=== PATIENT | female | born 1990 | race Caucasian/White ===

== ENCOUNTER → 2021-08-14 14:53 | Outpatient (CLI) | payer OTHER, SELFPAY ==
--- NOTE | 2021-08-14 | DI.US.S_ITS ---
PROCEDURE: US OB >= 14 WEEKS FETUS INDICATIONS: 20 WEEK ANATOMY SCAN OUTSIDE/PRIOR DATING DATA: Last menstrual period (LMP): 03/30/2021. LMP-based estimated date of delivery (ROBERT): 01/04/2022 . First dating scan (date and location): 08/14/2021 . Estimated date of delivery (ROBERT) from first dating scan: 12/30/2021 TECHNIQUE: Real-time scanning was performed of the fetus, with image documentation and biometric measurements. Endovaginal scanning: No COMPARISON: None. FINDINGS: General: A single living intrauterine gestation is present. Presentation: Breech. Placenta: Placental position is posterior , without previa. Amniotic fluid index: 8.5 cm, normal range is 5-24 cm. heart rate: 144 beats per minute. Maternal cervical canal: 3.6 cm long. Normal lower limit is 2.5 cm. biometrics: Biparietal diameter: 19 weeks 6 days Head circumference: 19 weeks 5 days Abdominal circumference: 21 weeks Femur length: 19 weeks 6 days Estimated gestational age from initial scan: not applicable. Composite gestational age from present scan: 20 weeks 1 day Estimated weight and percentile: 350 g; 88th percentile based on LMP Measurement variability for biometric dating: +/- 7 days from 14 weeks to 15 weeks 6 days gestation, +/- 10 days from 16 weeks to 21 weeks 6 days gestation, +/- 2 weeks from 22 weeks to 27 weeks 6 days gestation, +/- 3 weeks for 28 weeks gestation or later. weight reference: 4500 g or EFW >90/95% is considered macrosomia or large for gestational age. EFW <10% is small for gestational age. EFW 5% or less is considered intra-uterine growth restriction. Anatomic survey: Neuro: Ventricles are non-dilated at less than 10 mm. Cisterna magna is normal at 3-11 mm. Cerebellum is normal in size and morphology. Nuchal skin fold: Normal at less than 6 mm between 14-21 weeks gestational age. Face: Nose and lips, facial profile are normal. Spine: No evidence for spina bifida. Heart: 4-chambered heart is present, with normal ventricular outflow tracts. Diaphragm: Diaphragm is intact. Stomach: Left-sided stomach is present. Kidneys: No hydronephrosis. Normal is less than 5 mm in 2nd trimester, less than 7 mm in 3rd trimester. Cord: 3-vessel cord has orthotopic insertion. Marginal cord insertion site roughly 2.1 cm from the placental edge. Bladder: Normal in size. Extremities: All 4 extremities identified. IMPRESSION: 1. 20 week 1 day single living IUP. 2. Spine and kidneys suboptimally visualized; otherwise normal anatomic survey. Follow-up recommended. 3. Marginal cord insertion site. Recommend attention on follow-up. Dictated by: Hayder HERRMANN Interpreted: Cesario Buenrostro MD on 08/14/2021 at 16:36 Transcribed by: SYLVIA on 08/14/2021 at 16:39 Approved by: Cesario Buenrostro M.D. on 08/14/2021 at 17:17
== END ==
PROVIDERS: Referring Provider Nurse Practitioner Obstetrics & Gynecology; Visit Provider Nurse Practitioner Obstetrics & Gynecology
DX: Z34.92 Encounter for supervision of normal pregnancy, unspecified, second trimester (principal); Z3A.20 20 weeks gestation of pregnancy
CPT/HCPCS: 76811

== ENCOUNTER → 2021-09-10 13:37 | Outpatient (CLI) | payer OTHER, SELFPAY ==
--- NOTE | 2021-09-10 | DI.US.S_ITS ---
PROCEDURE: US OB FOLLOW UP INDICATIONS: FOLLOW UP SPINE, KIDNEYS, AND PLACENTAL CORD INSERTION OUTSIDE/PRIOR DATING DATA: Last menstrual period (LMP): 03/30/2021 LMP-based estimated date of delivery (ROBERT): 01/04/2022. First dating scan (date and location): 08/14/2021. Estimated date of delivery (ROBERT) from first dating scan: 12/31/2021. The calculations are made using the ultrasound ROBERT of 12/31/2021. TECHNIQUE: Real-time scanning was performed of the fetus, with image documentation and biometric measurements. Endovaginal scanning: No COMPARISON: [facility], US, US OB >= 14 WEEKS FETUS, 08/14/2021, 15:20. FINDINGS: General: A single living intrauterine gestation is present. Presentation: Vertex. Placenta: Placental position is posterior , without previa. Amniotic fluid index: 12.1 cm, normal range is 5-24 cm. heart rate: 150 beats per minute. Maternal cervical canal: Not well seen. Clinically estimated gestational age: 24 weeks Normal LS spine and kidneys. Marginal placental cord insertion site redemonstrated. IMPRESSION: Single living IUP redemonstrated and today's examination demonstrating normal appearance of the lumbosacral spine and kidneys. We strive to produce accurate, complete, and clear reports of imaging services. To assist us in improving patient care, this report was composed using standard report templates and voice recognition software. Therefore, it may contain abnormal punctuation, insertions and/or omissions. Occasional wrong-word or sound-alike substitutions may occur. Though we review the report and make efforts to correct it, we do recommend that the report be read carefully in proper context to recognize any text inaccuracies. Dictated by: Hayder HERRMANN Interpreted: Raffaele Marinelli MD on 09/10/2021 at 15:28 Transcribed by: CANDY on 09/10/2021 at 15:30 Approved by: Raffaele Marinelli M.D. on 09/10/2021 at 16:22
== END ==
PROVIDERS: Referring Provider Nurse Practitioner Obstetrics & Gynecology; Visit Provider Nurse Practitioner Obstetrics & Gynecology
DX: Z36.2 Encounter for other antenatal screening follow-up (principal); Z3A.24 24 weeks gestation of pregnancy
CPT/HCPCS: 76816

== ENCOUNTER → 2021-12-11 19:26 | Outpatient (ROUT) | payer BC, SELFPAY | PROVIDERS: Visit Provider Nurse Practitioner Obstetrics & Gynecology | DX: Z36.85 Encounter for antenatal screening for Streptococcus B (principal); Z3A.36 36 weeks gestation of pregnancy | CPT/HCPCS: 87081 ==

== ENCOUNTER 2022-01-05 18:28 | Inpatient (IN) | payer BC, SELFPAY ==
--- NOTE | 2022-01-05 18:35 | P.HPOB_ITS ---
OB HPI Date/Time Date of admission: 01/05/22 Date Patient Seen: 01/05/22 Time Patient Seen: 18:35 History of Present Condition Chief complaint: Eval of Labor : 1 Para: 0 Estimated Date of Delivery: 01/04/22 Estimated Gestational Age (weeks): 40.1 Narrative: Meenu Saucedo is a 31 year old female @ [id number] here for admission for term PROM. Seen in clinic w/ SROM at 1550, positive for pooling, ferning and nitrazine. Has been experiencing irregular contractions x 2 days, described as intense and regular every 5-6 minutes throughout the night, then more mild and tolerable during the day. Uncomplicated PN care w/ CNM. Desires an epidural and active management of PROM. History of Present care: good care, initiated at week # (10), number of visits (10) and pounds weight gain (30) Dating criteria: LMP confirmed by 1st trimester US Ultrasounds: normal mid trimester US Abnormal ultrasound findings: marginal cord insertion Obstetrical complications: none Medical complications: none Preadmission Labs Blood type: A (+) positive -: Antibody screen: negative, GBS status: negative, HBsAG: negative, HIV: negative and RPR/VDLR: negative -: Chlamydia screen: not detected and Gonorrhea screen: not detected -: Rubella: immune and Varicella: immune HCT: 36.5 HCAB: negative 1 hr GTT: 134 Evaluation Evaluation Baseline heart rate: 130 Variability: Moderate (11-25) monitor accelerations: Present Monitor Decelerations: Absent Contraction Frequency (minutes): 5 Uterine Contraction Intensity: Mild Status: Category l Comments: CE deferred for PROM [facility] Social History Smoking Status: Never smoker Meds Home Medications and Allergies Home Medications Medication Instructions Recorded Confirmed Type No Known Home Medications 01/05/22 01/05/22 History Allergies Allergy/AdvReac Type Severity Reaction Status Date / Time No Known Drug Allergies Allergy Verified 01/05/22 19:56 Review of Systems Review of Systems ROS: Yes All systems reviewed with the patient and are negative except as otherwise documented OB Exam Narrative Exam Narrative: VS: BP 127/75mmHg, HR 88bpm, T 36.8C Temporal Presentation: vertex Objective Labs Result Diagrams: 01/05/22 19:00 Assessment and Plan Assessment and Plan Assessment and Plan narrative: A: Term nullipara PROM x 3 hours without sx of infection Early labor Cat I FHR P: Admit, routine orders. epidural when requested and pitocin protocol once children's literature professor allows. Reassess after 2 hours of regular, moderate contractions.
[2022-01-05 19:22] LABS: COVID19 -Nasal RAPID Negative (Negative)
[2022-01-05] MEDS: LACTATED RINGERS 1,000 ML 100 ML IV ×2 (19:48→22:08)
[2022-01-05 19:50] LABS: Add Manual Diff / Slide Review NO; Basophils Absolute Auto 200 /uL (0-100); Basophils Percent Auto 1.3 % (0-2); Eosinophils Absolute Auto 100 /uL (0-450); Eosinophils Percent Auto 0.8 % (2-4); Hematocrit 37.6 % (36-46); Hemoglobin 12.6 g/dL (12.0-16.0); Lymphocytes Absolute Auto 2200 /uL (1100-4500); Lymphocytes Percent Auto 17.4 % (25-40); Mean Corpuscular HGB Conc 33.6 % (30-36); Mean Corpuscular Hemoglobin 29.4 PG (26-34); Mean Corpuscular Volume 87.5 fL (80-100); Monocytes Absolute Auto 700 /uL (0-900); Monocytes Percent Auto 5.6 % (3-14); Neutrophils Absolute Auto 9600 /uL (1500-7000); Neutrophils Percent Auto 74.9 % (50-75); Platelet Count 192 X10^3/uL (150-400); Red Cell Distribution Width 13.5 % (11.6-14.8); White Blood Cell Count 12.9 X10^3/uL (4.5-11.0)
[2022-01-05 19:54] VITALS: BP 137/81
--- NOTE | 2022-01-05 20:51 | PM.AN.REGBLK ---
Regional Block Pre-procedure Procedure: Continuous Lumbar Epidural for L&D Attending OB provider: Cari Correia PMH/ROS narrative: term labor, no complications ASA Class: II Labs: Hct 37.6 % (36-46) 01/05/22 19:00 Plt Count 192 X10^3/uL (150-400) 01/05/22 19:00 Medications: Current Medications Generic Name Dose Route Start Last Admin Trade Name Freq PRN Reason Stop Dose Admin Calcium Carbonate 1,000 mg 01/05/22 18:33 Calcium Carbonate 500 Mg Tab PO Q2HR PRN Dyspepsia Carboprost Tromethamine 250 mcg 01/05/22 18:33 Carboprost 250 Mcg/Ml Ampul IM Q90M PRN Bleeding Fentanyl 100 mcg 01/05/22 18:38 Fentanyl 250 Mcg/5 Ml Inj IV Q1H PRN Pain, Severe (7-10) Lactated Ringer's 1,000 mls @ 100 mls/hr 01/05/22 18:45 01/05/22 19:48 Lactated Ringers IV 100 mls/hr CONT JASMINA Administration Oxytocin/Lactated Ringer's 30 unit in 500 mls @ 200 mls/hr 01/05/22 18:33 Oxytocin Premix IV CONT PRN Bleeding Protocol Tranexamic Acid 1,000 mg/ 100 mls @ 200 mls/hr 01/05/22 18:33 Sodium Chloride IV NOW PRN Bleeding Oxytocin/Lactated Ringer's 30 unit in 500 mls @ 3 mls/hr 01/05/22 18:45 Oxytocin Premix IV TITRATE JASMINA Protocol 3 MILLIUNIT/MIN Methylergonovine Maleate 0.2 mg 01/05/22 18:33 Methylergonovine 0.2 Mg Tablet PO Q6HR PRN Heavy Bleeding Methylergonovine Maleate 0.2 mg 01/05/22 18:33 Methylergonovine 0.2 Mg/Ml Vial IM NOW PRN Bleeding Misoprostol 800 mcg 01/05/22 18:33 Misoprostol 200 Mcg Tablet VA NOW PRN Bleeding Misoprostol 1,000 mcg 01/05/22 18:33 Misoprostol 200 Mcg Tablet VA NOW PRN Bleeding Misoprostol 400 mcg 01/05/22 18:33 Misoprostol 200 Mcg Tablet SL NOW PRN Bleeding Naloxone HCl 0.2 mg 01/05/22 18:33 Naloxone 0.4 Mg/Ml Vial IV Q2MIN PRN Opiate Reversal Ondansetron HCl 4 mg 01/05/22 18:33 Ondansetron 4 Mg/2 Ml Inj IV Q4HR PRN Nausea And Vomiting Oxytocin 10 unit 01/05/22 18:33 Oxytocin 10 Unit/Ml Vial IM NOW PRN Bleeding Allergies: Allergies Allergy/AdvReac Type Severity Reaction Status Date / Time No Known Drug Allergies Allergy Verified 01/05/22 19:56 Procedure Insertion date: 01/05/22 Insertion time: 21:00 Prep/Local: betadine x3 and 1% lidocaine Interspace: L2-3 Patient position: sitting Needle: 18 gauge Hustead (CSE: 27g Pencan through Hustead, clear CSF, 1mL 0.25% bupiv MPF) Loss of resistance with: saline CECILY at (cm): 5 Catheter placed at SKIN (cm): 10 Catheter in SPACE (cm): 5 Initial Medications TEST DOSE time: 21:05 TEST DOSE: 1.5% lidocaine with epinephrine 1:200k (mL): 3 BOLUS DOSE time: 21:09 BOLUS DOSE (mL): 4 BOLUS DOSE med: other (infusate) Infusion INFUSION: 0.125% bupivacaine and with fentanyl 2 mcg/mL Initial rate (mL/hr): 6 Subsequent interventions: Post-procedure Anesthesia time START: 20:53 Anesthesia time END: 02:06 Post-procedure Anesthesia Assessment: Yes CV function: HR/BP stable, Yes Resp function: RR/sat/airway adequate, Yes Mental status appropriate and No Anesthesia complications
[2022-01-05] MEDS: FENT 2MCG/ML BUPIV 0.125% EPI 200 MCG/100 ML PLAST..BAG 6 MCG EPIDURAL (22:09)
[2022-01-05] MEDS: OXYTOCIN PREMIX 30 UNIT/500 ML PLAST..BAG IV (22:09)
--- NOTE | 2022-01-06 02:40 | P.PCNOB_ITS ---
Events: Labor Augmentation Labor & Delivery Delivery date: 01/06/22 Intrapartal Events: None Cervical ripening method: none Induction method: none Delivery augmentation: pitocin Delivery monitor: external FHT and external uterine Route of delivery: Episiotomy description: None L&D Laceration Description: Vaginal - 1st Degree Delivery repair: chromic (3.0) Estimated blood loss (mL): 200 Anesthesia Type: Epidural Narrative: Epidural was started at 2100 and pitocin started at 2200. Epidural was effective and max pitocin dose was 8mu/min. CNM called to bedside for patient report of rectal pressure at 0104 and was C/C/+1. Patient pushed effectively with coaching and encouragement w/ NSVB of a vigorous baby girl in GREGORIO position. There was no nuchal cord and a compound R hand was manually reduced. The shoulders delivered easily without additional maneuvers. was placed on maternal abdomen for drying and skin to skin. After cessatio of pulsation, the cord was double clamped and cut. Remaining 30 units of pitocin in 500mL was increased to 250mL/hr for AMTSL. Cord blood hold sample was obtained. Gentle cord traction and a single maternal push led to spontaneous, Schultze delivery of an apparently intact placenta, membranes and 3VC. Fundus immediately form and bleeeding minimal. A 1st degree vaginal laceration was repaired w/ 3.0 chromic in the usual fashion under adequate epidural anesthesia. Both mother and baby stable and skn to skin as I left the room. QBL 200mL. [place] Baby 1: gender: Female Presentation: vertex Position: Right Occiput Anterior Placenta delivery description: Spontaneous Cord Vessel Description: 3 Vessels score (1 min): 8 score (5 min): 9 weight: 3.29 kg Plan for aftercare: Routine care
[2022-01-06] MEDS: LACTATED RINGERS 1,000 ML 100 ML IV (03:06)
[2022-01-06] MEDS: KETOROLAC 30 MG/ML VIAL IV (03:48)
[2022-01-06] MEDS: DOCUSATE 100 MG CAPSULE PO (09:09)
--- NOTE | 2022-01-06 14:15 | P.PNOB_ITS ---
Subjective - OB Subjective Patient comments: no complaints and pain well controlled baby status: doing well feeding status: exclusively breast feeding Date Patient Seen: 01/06/22 Time Patient Seen: 14:15 Exam Vital Signs (past 8 hours): BP 111/73mmHg, HR 75bpm, RR 16/min, T 98.4F Oral Other: Fundus firm @ u-1, lochia light, no clots. Perineum w/ moderate edema. Objective Labs Result Diagrams: 01/05/22 19:00 Labs: Laboratory Results - last 24 hr 01/05/22 01/05/22 01/05/22 19:00 19:00 19:00 WBC 12.9 H RBC 4.30 Hgb 12.6 Hct 37.6 MCV 87.5 MCH 29.4 MCHC 33.6 RDW 13.5 Plt Count 192 Neut % (Auto) 74.9 Lymph % (Auto) 17.4 L [place] % (Auto) 5.6 Eos % (Auto) 0.8 L Baso % (Auto) 1.3 Neut # (Auto) 9600 H Lymph # (Auto) 2200 [place] # (Auto) 700 Eos # (Auto) 100 Baso # (Auto) 200 H SARS-CoV-2 (PCR) Negative Blood Type A Positive Antibody Screen Negative Assessment & Plan Plan day: 1 plan OB: routine care Time Spent With Patient Time: Total time spent is greater than 50% in coordination of care (as documented) at patient's floor/unit and/or counseling patient: Time with patient: less than 15 minutes
[2022-01-06 14:38] VITALS: TEMP 36.9
[2022-01-06] MEDS: IBUPROFEN 600 MG TABLET PO (14:38)
--- NOTE | 2022-01-07 07:40 | P.DS_ITS ---
Discharge Providers Provider Date of admission: 01/05/22 18:28 Discharge Date: 01/07/22 Consults: 01/05/22 18:34 Consult to Anesthesiology Urgent Comment: Consulting Provider: Anesthesiologist Reason for consultation: upon request Has provider been notified: No 01/07/22 02:35 Consult to Farm Reporter Routine Comment: Discharge provider: Cari Correia CNM Summary Hospital Course Date Patient Seen: 01/07/22 Time Patient Seen: 07:51 Diagnoses: o70.0 Hospital Course: PPD1: Patient is voiding, ambulating and independently. Tolerating a general diet. Pain is well controlled w/ PO medication. Bleeding is light, without clots. remains supportive at bedside. Both feel ready for discharge to home with their daughter. Peripartum Data Delivery Method: Natural Vaginal Laceration Description: Vaginal - 1st Degree Episiotomy description: None Procedures: o70.0 complications: none 1: Gender: Female Disposition of : home Discharge Diagnosis (1) First degree perineal laceration during delivery: Status: Acute Status at Discharge Cognitive/behavioral status at discharge: oriented Functional status at discharge: independent ambulation Overall status at discharge: patient is back to baseline Time Spent with Patient Time attestation: Total time spent providing and/or coordinating discharge services: Time spent: Greater than 30 minutes Specific discharge activities: Routine PP orders and precautions Objective Labs Result Diagrams: 01/05/22 19:00 Exam Vital Signs (past 8 hours): BP 118/82mmHg, HR 77bpm, RR 20/min, T 98.3F Temporal, SpO2 98% on RA Other: Fundus firm @ u-2, lochia scant, no clots, perineum intact w/ mild edema Discharge Plan Discharge Plan Patient Disposition: Home Discharge orders & Medications Prescriptions: New ibuprofen 600 mg Tablet 600 mg PO Q6HR PRN (Reason: Pain, Mild (1-3)) 14 Days Qty: 60 0RF Follow up/Referrals: Miscellaneous,DoctorMD [Non-Staff] - Cari Correia CNM [[facility] [employer] [facility]] - (Follow-up by Telehealth 01/19/22 @ 1140 Follow-up in office 02/16/22 @ 1030) Diet/Activity/Treatments Diet: Diet as Tolerated and Regular Activity: pelvic rest x 6 weeks Skin/Wound/Dressing Care Report to your healthcare provider any signs of infection, such as:: chills, fever, increased pain, unusual drainage and unusual redness Visit Report/Discharge Packet Instructions: Depression
[2022-01-07] MEDS: DOCUSATE 100 MG CAPSULE PO (08:56)
[2022-01-07 10:57] VITALS: BP 115/73; PULSE 74; RESP 16; TEMP 37.3
== END 2022-01-07 15:10 | disposition home or self-care (01) | DRG 807 ==
PROVIDERS: Admitting Provider Nurse Practitioner Obstetrics & Gynecology; Referring Provider Nurse Practitioner Obstetrics & Gynecology; Visit Provider Nurse Practitioner Obstetrics & Gynecology
DX: O48.0 Post-term pregnancy (principal); Z37.0 Single live birth; O70.0 First degree perineal laceration during delivery; Z3A.40 40 weeks gestation of pregnancy; Z20.822 Contact with and (suspected) exposure to COVID-19
CPT/HCPCS: 01967; 36415; 59050; 85025; 86850; 86900; 86901; 87635; C9803; G0379; J1885; J2590

== ENCOUNTER → 2023-07-05 12:47 | Outpatient (CLI) | payer OTHER, SELFPAY ==
--- NOTE | 2023-07-05 12:49 | DI.US.S_ITS ---
PROCEDURE: US OB >= 14 WEEKS FETUS INDICATIONS: 20WK ANATOMY SCAN OUTSIDE/PRIOR DATING DATA: Last menstrual period (LMP): 02/12/2023. LMP-based estimated date of delivery (ROBERT): 11/19/2023. TECHNIQUE: Real-time scanning was performed of the fetus, with image documentation and biometric measurements. COMPARISON: None FINDINGS: General: A single living intrauterine gestation is present. Presentation: Breech. Placenta: Placental position is posterior , without previa. Amniotic fluid index: 9.3 cm, normal range is 5-24 cm. Single deepest vertical pocket is 3.1 cm. heart rate: 153 beats per minute. Maternal cervical canal: 3.8 cm long. Normal lower limit is 2.5 cm. biometrics: Biparietal diameter: 4.6 cm, 20 weeks Head circumference: 17.8 cm, 20 weeks and 2 days Abdominal circumference: 15.3 cm, 20 weeks and 4 days Femur length: 3.5 cm, 21 weeks and 1 day Clinically estimated gestational age: 20 weeks and 3 days Composite gestational age from present scan: 20 weeks and 4 days Estimated weight and percentile: 372 g, 61st percentile Anatomic survey: Neuro: Ventricles are non-dilated at less than 10 mm. Cisterna magna is normal at 3-11 mm. Cerebellum is normal in size and morphology. Nuchal skin fold: Normal at less than 6 mm between 14-21 weeks gestational age. Face: Nose and lips, facial profile are normal. Spine: No evidence for spina bifida. Heart: 4-chambered heart is present, with normal ventricular outflow tracts. Diaphragm: Diaphragm is intact. Stomach: Left-sided stomach is present. Kidneys: No hydronephrosis. Normal is less than 5 mm in 2nd trimester, less than 7 mm in 3rd trimester. Cord: 3-vessel cord has orthotopic insertion. Bladder: Normal in size. Extremities: All 4 extremities identified. IMPRESSION: Living intrauterine gestation at 20 weeks and 3 days, with concordant dating today. Biometry measures 61st percentile. No significant abnormalities on routine anatomic survey. Dictated by: Junior Kee M.D. on 07/05/2023 at 15:40 Approved by: Junior Kee M.D. on 07/05/2023 at 15:46
== END ==
PROVIDERS: Referring Provider Nurse Practitioner Obstetrics & Gynecology; Visit Provider Nurse Practitioner Obstetrics & Gynecology
DX: Z34.92 Encounter for supervision of normal pregnancy, unspecified, second trimester (principal); Z3A.20 20 weeks gestation of pregnancy
CPT/HCPCS: 76811

== ENCOUNTER 2023-11-17 16:14 | Outpatient (CLI) | payer OTHER, SELFPAY ==
--- NOTE | 2023-11-17 17:04 | PM.OBTRLD ---
Visit Information Visit Information Date of evaluation: 11/17/23 Primary OB Provider: Cari Correia On-call OB Provider: Cari Correia Reason for Evaluation: Yes rupture of membranes Comments/Additional reasons for admission: 33YO @ 40 wks 6 days by LMP concordant with 9wk US presents for evaluation of ROM. Was sitting up on a ball at home when she felt a small gush of clear fluid and got up to find a small wet [place] on her ball and clothes. Feeling occasional, mild cramping. No vaginal bleeding. Uncomplicated care with CNMs. Vital Signs Vital Signs: BP 115/71, HR 86bpm, T 37.5C Temporal PFSH Social History (Updated 11/17/23 @ 17:16 by Cari Correia CNM) marital status: household members: spouse and children lives independently: Yes housing: house education level: college occupational status: employed Smoking Status: Never smoker Review of Systems Review of Systems ROS: Yes All systems reviewed with the patient and are negative except as otherwise documented Exam Vital Signs (past 8 hours): see above Presentation: vertex Amniotic Fluid: clear Objective Labs Labs: Amnisure- POSITIVE Evaluation Evaluation Baseline heart rate: 120 Variability: Moderate (11-25) monitor accelerations: Present Monitor Decelerations: Absent Contraction Frequency (minutes): 6 Uterine Contraction Intensity: Mild Category of Tracing: Reactive Comments: CE deferred, not in labor Diagnosis, Plan/Disposition Final Diagnosis (1) PROM (premature rupture of membranes): Status: Acute Plan/Disposition Plan: Counseled on active vs expectant management of ROM with risks and benefits of each option discussed. Counseled on [facility] status on divert for unless delivery is imminent. Patient is understanding and desires expectant management. Agrees to call me and head to [place] if labor occurs overnight. Will check-in in the morning to create a plan if not yet in labor. Reviewed warning sx and when to call sooner (meconium stained fluid or decreased FM). OB Disposition: home
== END 2023-11-17 17:01 | disposition home or self-care (01) ==
LOC: LABOR 16:41 → OB 11-18 15:43
PROVIDERS: Referring Provider Nurse Practitioner Obstetrics & Gynecology; Visit Provider Nurse Practitioner Obstetrics & Gynecology
DX: O42.92 Full-term premature rupture of membranes, unspecified as to length of time between rupture and onset of labor (principal); Z3A.40 40 weeks gestation of pregnancy
CPT/HCPCS: 59025; 84112; G0378; G0379